=== PATIENT | male | born 1940 | race Caucasian/White ===

== ENCOUNTER → 2017-02-08 | Outpatient (CLI) | payer MEDICARE ==
[~2017-02-08] MED LIST: ALLO300T2 PO; ALTA2.5C4 PO; CARD240C6 PO; CIPR500T2 PO; CORE25TA PO; DIGO0.25 PO; EPLE25TA PO; FURO1TAB61 PO; GLIP1TAB60 PO; HYDR-3516 PO; METF500T PO; WARF-20 PO
[2017-02-08 11:21] LABS: AUTOMATED NEUTROPHIL # 6.6 TH/MM3 (1.8-7.7); BASOPHIL # 0.2 TH/MM3 (0-0.2); BASOPHIL % 2.3 % (0.0-2.0); EOSINOPHIL # 0.4 TH/MM3 (0-0.4); EOSINOPHIL % 4.4 % (0.0-4.0); HEMO FLAGS DIFF FINAL; LYMPHOCYTE # 1.9 TH/MM3 (1.0-4.8); MEAN CELL VOLUME 88.5 FL (80.0-100.0); MEAN CORPUSCULAR HEMOGLOBIN 29.1 PG (27.0-34.0); MEAN CORPUSCULAR HGB CONC 32.9 % (32.0-36.0); MONO % 6.8 % (0.0-8.0); NEUT % 67.5 % (16.0-70.0); PLATELET COUNT 202 TH/MM3 (150-450); RED BLOOD COUNT 4.29 MIL/MM3 (4.50-5.90); RED CELL DISTRIBUTION WIDTH 15.1 % (11.6-17.2); WHITE BLOOD COUNT 9.8 TH/MM3 (4.0-11.0)
[2017-02-08 11:26] LABS: BACTERIA, URINE RARE /hpf; BLOOD, URINE NEG (NEG); COMMENT (UR) CULTURE INDICATED; CULTURE IF INDICATED CULTURE INDICATED; GLUCOSE,URINE NEG (NEG); KETONE, URINE NEG (NEG); NITRITE,URINE NEG (NEG); SQUAMOUS EPITHELIAL CELL URINE <1 /hpf (0-5); URINE COLOR YELLOW (YELLW/STRAW)
[2017-02-08 11:33] LABS: URIC ACID 8.4 MG/DL (2.6-7.2)
[2017-02-08 11:33] LABS: INTERNATIONAL NORMALIZED RATIO 1.4 RATIO; PROTHROMBIN TIME - PATIENT 15.3 SEC (9.8-11.6)
[2017-02-08 11:34] LABS: ALT (GPT) 15 U/L (12-78); ANION GAP 8 MEQ/L (5-15); AST (GOT) 9 U/L (15-37); BICARBONATE 29.3 MEQ/L (21.0-32.0); BLOOD UREA NITROGEN 23 MG/DL (7-18); CHLORIDE 100 MEQ/L (98-107); GLOMERULAR FILTRATION RATE 57 ML/MIN (>89); GLUCOSE,FASTING 197 MG/DL (74-99); POTASSIUM 4.3 MEQ/L (3.5-5.1); SODIUM (NA) 137 MEQ/L (136-145)
[2017-02-08 11:36] LABS: ALKALINE PHOSPHATASE 42 U/L (45-117); TOTAL BILIRUBIN ADULT 1.2 MG/DL (0.2-1.0)
[2017-02-08 11:42] LABS: MICRO ALBUMIN RANDOM URINE RAW 10.4 MG/L (0.0-30.0)
[2017-02-08 11:47] LABS: DIGOXIN 1.6 NG/ML (0.8-2.0); LDL CHOLESTEROL 129 MG/DL (0-99)
[2017-02-08 18:15] LABS: HEMOGLOBIN A1b 2.7 %; HEMOGLOBIN Ao 79.4 %; HEMOGLOBIN LA1C 2.7 %
== END ==
LOC: ELAB 10:06
PROVIDERS: ATTEND Internal Medicine
DX: M10.9 Gout, unspecified (principal); E11.65 Type 2 diabetes mellitus with hyperglycemia; I10 Essential (primary) hypertension; I25.9 Chronic ischemic heart disease, unspecified; Z79.899 Other long term (current) drug therapy; Z79.01 Long term (current) use of anticoagulants; Z95.810 Presence of automatic (implantable) cardiac defibrillator; Z12.5 Encounter for screening for malignant neoplasm of prostate
CPT/HCPCS: 36415; 80053; 80061; 80162; 81001; 82043; 83036; 84153; 84443; 84550; 85025; 85610; 87086

== ENCOUNTER 2017-02-10 06:27 | Day surgery (SDC) | payer MEDICARE ==
[~2017-02-10] VITALS: Ht 182.9 cm; Wt 131.2 kg
[2017-02-10] MEDS ORDERED: SODIUM CHLOR 0.9% 1000 ML INJ 1,000 ML IV SCH (06:46)
[2017-02-10 07:00] VITALS: BP 124/71; PULSE 70; RESP 18; TEMP 98.5; O2SAT 95
[2017-02-10] MEDS ORDERED: POVIDONE IODINE 5% (ANTISEPSIS KIT) 4 APPLICATIONS EACH NARE SCH (07:00)
[2017-02-10] MEDS ORDERED: MUPIROCIN 2% OINT 1 APPLIC/GM SYR NASAL SCH (07:00)
[2017-02-10] MEDS ORDERED: CHLORHEXIDINE GLUCONATE 2 % 1 PACK (2 CLOTHS) TOP SCH (07:00)
[2017-02-10] MEDS ORDERED: VANCOMYCIN INJ 1,000 MG in SODIUM CHLOR 0.9% 250 ML INJ 250 ML IV SCH (07:00)
[2017-02-10] MEDS ORDERED: ceFAZolin 2 GM PREMIX 50 ML IV SCH ×2 (07:00→17:00)
[2017-02-10] MEDS ORDERED: POVIDONE IODINE 5% (ANTISEPSIS KIT) 4 APPLICATIONS EACH NARE PRN (07:15)
[2017-02-10] MEDS ORDERED: INSULIN HUMAN REGULAR 1,000 UNITS/10 ML VIAL SQ PRN (07:15)
[2017-02-10] MEDS ORDERED: SODIUM CHLORID 0.9% 500 ML IV PRN (07:15)
[2017-02-10] MEDS ORDERED: METOPROLOL TARTRATE 25 MG TAB PO PRN (07:15)
[2017-02-10] MEDS ORDERED: LACTATED RINGER'S 1000 ML IV PRN (07:15)
[2017-02-10] MEDS ORDERED: CHLORHEXIDINE GLUCONATE 2 % 1 PACK (2 CLOTHS) TOPICAL PRN (07:15)
[2017-02-10] MEDS ORDERED: ALTA2.5C4 PO (08:12)
[2017-02-10] MEDS ORDERED: HYDR-3516 PO (08:12)
[2017-02-10] MEDS ORDERED: GLIP1TAB60 PO (08:12)
[2017-02-10] MEDS ORDERED: ALLO300T2 PO (08:12)
[2017-02-10] MEDS ORDERED: DIGO0.25 PO (08:12)
[2017-02-10] MEDS ORDERED: EPLE25TA PO (08:12)
[2017-02-10] MEDS ORDERED: FURO1TAB61 PO (08:12)
[2017-02-10] MEDS ORDERED: CORE25TA PO (08:12)
[2017-02-10] MEDS ORDERED: METF500T PO (08:12)
[2017-02-10] MEDS ORDERED: WARF-20 PO (08:12)
[2017-02-10] MEDS ORDERED: CARD240C6 PO (08:12)
[2017-02-10] MEDS ORDERED: LIDOCAINE HCL 1% PF 30 ML VIAL ONE (08:27)
[2017-02-10] MEDS ORDERED: VANCOMYCIN HCL 1000 MG VIAL ONE (08:49)
[2017-02-10] MEDS ORDERED: MIDAZOLAM HCL 5 MG/5 ML VIAL ONE (08:49)
--- NOTE | 2017-02-10 09:39 | CATHPROC ---
[email or web address] HIS Report Study Information Study Number Admission Scheduled Start Study Start [id number] Feb 10 2017 6:27AM 02/10/2017 Feb 10 2017 8:26AM Agenda Service Cardiac Pacer/ICD Admit Source Facility Department Other [facility] - [facility] Operator Physician and Clinical Staff Initial MD Oliver, Carlitos Chief Power Dispatcher Erick Ennis,ANNA Recorder Shoshana Ivory RT(R) (BS) Scrub Frandy Jaimes RCIS(BS) Equipment Time Radiology Assistant Description Size Mfg Part Number Used/Scraped [employer]/ EP 09:16 DEFIBRILLATOR, ENERGEN INFORMATION SECURITY SPECIALIST-D N141 Used PACER TP-1103 08:28 [employer] SUTURE, STRIP PLUS 1/2" * Used *[id number] TP-1103 08:28 [employer] SUTURE, STRIP PLUS 1/2" * Used *[id number] 08:28 MEDLINE PACER ADHESIVE, MASTISOL 2/3CC 2/3CC 0523-48 Used 08:28 MEDLINE PACER LOMELI, LIMB * 2530 *[id number] Used [id number] 08:28 MEDLINE PACER PACK, PACER CUSTOM * Used *[id number] 08:28 MEDLINE PACER PEN, SKIN DUAL W/ RULER * Used *[id number] 09:23 Needle Sponge Count 1 111 Used 09:23 Needle Sponge Count 2 2 Used 09:23 Needle Sponge Count 25 1 Used [id number] SUTURE, 2-0 SILK Strands (A185H) SUTURE, 3-0 VICRYL [SH] ([id number]) SUTURE, 4-0 MONOCRYL [PS2] (Y496G) SUTURE, 4-0 VICRYL [PS2] ([id number]) [id number] 08:28 [facility] BLANKET,WARM AIR CCL * Used *[id number] [facility] PAD, ELECTROSURGICAL 08:28 * [id number] *[id number] Used SURGICAL GROUNDING ORANGE [id number] 08:28 [employer] [facility] [facility]. ELECTRODE, PRO-PADZ BIPHASIC * Used *[id number] Equipment Model, Serial, Lot Number and Expiration Data Description Model Number Serial Number Lot Number Expiration Date DEFIBRILLATOR, ENERGEN INFORMATION SECURITY SPECIALIST-D G141 [id number] 04-06-2017 History: Current Medications Medication Dosage/Unit Route Frequency Last Date/Time Taken Beta Earl Coumadin History: Allergies Allergy Reaction No Known Allergies History: Risk Factors Previous Heart Failure Yes History: Stress Tests Stress or Imaging Studies Performed No Labs Hgb (g/dl) Hct (%) WBC (l/cumm) Platelets (thousands) 11.60-17.00 35.00-51.00 4.00-11.00 150.00-450.00 12.5 38 9.8 202 Glucose (mg/dl) BUN (mg/dl) Creatinine (mg/dl) BUN:Creatinine (1:x) 74.00-106.00 7.00-18.00 0.50-1.30 10.00-20.00 197 23 1.2 19.2 Na (meq/l) K (meq/l) 136.00-145.00 3.50-5.10 137 4.3 INR (PTT:PT) 0.90-1.10 1.4 CPK-MB (ng/ML) 0.50-3.60 Not Drawn Medication Medication Total Dose (Bolus/Oral) Medication Total Dosage/Unit 2% XYLOCAINE 20 mL FENTANYL 50 mcg VERSED 2 mg Medications (Bolus/Oral) Medication Time Given Dosage/Unit Administered By Reason VERSED 02/10/2017 9:03:25 AM 2 mg Erick Ennis 2 mg VERSED given in lab by Erick Ennis RN in Right Antecubital via Peripheral IV. FENTANYL 02/10/2017 9:04:02 AM 50 mcg Carlitos Oliver 50 mcg FENTANYL given in lab by Carlitos Oliver via Peripheral IV. 2% XYLOCAINE 02/10/2017 9:04:04 AM 20 mL Carlitos Oliver 20 mL 2% XYLOCAINE given in lab by Carlitos Oliver via left upper chest Subcutaneous. Medication (Drip) Medication Time Given Dosage/Unit Concentration/Unit Diluent (ml) Solutio n ANCEF 02/10/2017 8:49:59 AM 2 g 2 g ANCEF given in lab by Erick Ennis RN in Right Antecubital via Peripheral IV. IV Solutions 02/10/2017 8:35:14 AM 0 mL (IV) 500 NaCl .9 IV Solutions given in lab by Erick Ennis, ANNA in Right Antecubital via Peripheral IV. Pump/Drip Constantine w = 20 ml/hr using NaCl .9. VANCOMYCIN DRIP 02/10/2017 8:50:21 AM 1 g 1 g VANCOMYCIN DRIP given in lab by Erick Ennis, RN in Right Antecubital via Peripheral IV. Initial Case Assessment Cardiovascular HR Rhythm NIBP Chest Pain 51 paced 124/81 0 Edema Present Skin color Skin None Normal Warm Dry Circulatory - Lower Extremities Color Lower Right Color Lower Left Normal Normal Neurological State Oriented to time-place- Alert Moves all extremities person Respiration - General Respiration Rate SpO2 (%) (B/min) 14 96 Final Case Assessment Cardiovascular HR Rhythm NIBP Chest Pain 59 PACED 109/68 0 Edema Present Skin color Skin None Normal Warm Dry Circulatory - Right Pulses Dorsalis Pedis 1 Scale (0,1,2,3,4,d) Circulatory - Left Pulses Dorsalis Pedis 1 Scale (0,1,2,3,4,d) Neurological State Oriented to time-place- Alert Moves all extremities person Respiration - General Respiration Rate SpO2 (%) O2 (lpm) (B/min) 18 97 2 Chronological Log Time Study Chronological Log 8:34:52 Patient arrived via Bed. 8:34:53 Patient Name, D.O.B, / Armband Verified By R.N. 8:34:53 Consent signed by the physician and the patient and verified by the [facility] Operator staff. 8:34:54 Pre-op and post- op instructions given; patient acknowledges understanding of instructions. 8:34:55 Verbal Stimulation=2 Physical Stimulation=2 Airway=2 Respiration=2 TOTAL=8. (0=absent, 1=gr ited, 2=present) 8:35:00 Presedation assessment performed by [facility] Operator RN. 8:35:01 Patient has been NPO for More than 6Hrs. 8:35:03 Skin Breakdown none per pt 8:35:05 Patient Warmer Placed on the Table. 8:35:07 Disposable Defibrillator Pads Placed On Patient. 8:35:08 Myah Prominences Protected 8:35:09 A # 20 IV was noted in the Antecubital (right). Grade = 0 IV Solutions given in lab by Erick Ennis, RN in Right Antecubital via Peripheral IV. Pump/Dri p Flow = 20 ml/hr using 8:35:14 NaCl .9. 8:35:14 History and physical on the chart or being dictated. Assessment: Initial Case, HR=51 BPM, Rhythm=paced, DTVX=040/81 mmhg, Chest Pain=0, Edema=None, Color=Normal, Skin = Warm, Dry Lower Right Extremities: Color=Normal 8:35:15 Lower Left Extremities: Color=Normal Neurological: State=Alert, Ox3, CONKLIN Respiration: Resp=14 B/min, SpO2=96 % 8:40:47 A # 20 IV was noted in the Wrist (left). Grade = 0 Vitals capture started with the following parameters, Patient=Adult, Interval=3 min, Initial Pre ywohs=920 mmHg, 8:41:57 Deflation Rate=5 mmHg, Cuff placed on Right Arm 8:42:38 HR=60 bpm, YMFZ=417/81 mmhg, SpO2=93.0 %, Resp=13 B/min, Pain=0, Lizzie=10, Brantley=2 8:45:32 HR=65 bpm, PYWO=955/62 mmhg, SpO2=96.0 %, Resp=13 B/min, Pain=0, Lizzie=10, Brantley=2 8:47:48 Reference ECG taken 8:48:30 HR=58 bpm, JOKW=309/63 mmhg, SpO2=97.0 %, Resp=15 B/min, Pain=0, Lizzie=10, Brantley=2 8:49:59 2 g ANCEF given in lab by Erick Ennis, RN in Right Antecubital via Peripheral IV. 8:50:21 1 g VANCOMYCIN DRIP given in lab by Erick Ennis, RN in Right Antecubital via Peripheral I V. 8:50:46 2% CHLORHEXIDINE GLUCONATE WASH AND NASAL SWIPE DONE PRIOR TO PROCEDURE. 8:50:53 Bovie ground pad applied to: right thigh 8:51:14 Left Upper Chest Prepped Times Two. 8:51:30 HR=63 bpm, LBZY=639/59 mmhg, SpO2=98.0 %, Resp=13 B/min, Pain=0, Lizzie=10, Brantley=2 First Sponge And Instrument Count Done by Frandy Jaimes RCIS(BS). 8:52:10 Hypo's: 2, Sponges: 25, Bovie/scratch: 1 verified by erick Sutures: 4, Blades: 3, Instruments: 26, Syveck Patches: 0 8:54:31 HR=56 bpm, QPWV=595/65 mmhg, SpO2=97.0 %, Resp=19 B/min, Pain=0, Lizzie=10, Brantley=2 8:57:33 HR=39 bpm, VTFT=749/63 mmhg, SpO2=97.0 %, Resp=17 B/min, Pain=0, Lizzie=10, Brantley=2 9:00:29 HR=61 bpm, NTXH=779/63 mmhg, SpO2=98.0 %, Resp=23 B/min, Pain=0, Lizzie=10, Brantley=2 Time Out. Correct patient, procedure, procedure equipment, site and side verified with physician present. Time 9:02:28 concurred by MD, individual staff and DESIGN AND SALES CONSULTANT. Time Out #2 - Consents verified, patient in correct position, all results are labled and display ed, safety precautions 9:02:35 taken, antibiotics administered. Time out concurred by MD, individual staff and DESIGN AND SALES CONSULTANT in procedur e 9:02:56 Case Start 9:03:25 2 mg VERSED given in lab by Erick Ennis, ANNA in Right Antecubital via Peripheral IV. 9:03:29 HR=63 bpm, FKSU=154/65 mmhg, SpO2=98.0 %, Resp=10 B/min, Pain=0, Lizzie=10, Brantley=2 9:04:02 50 mcg FENTANYL given in lab by Carlitos Oliver via Peripheral IV. 9:04:04 20 mL 2% XYLOCAINE given in lab by Carlitos Oliver via left upper chest Subcutaneous. 9:05:23 Surgical Incision Made. 9:06:34 HR=59 bpm, XPJJ=852/58 mmhg, SpO2=96.0 %, Resp=13 B/min, Pain=0, Lizzie=10, Brantley=2 9:09:34 HR=58 bpm, YKXQ=219/63 mmhg, SpO2=95.0 %, Resp=16 B/min, Pain=0, Lizzie=10, Brantley=2 9:10:15 A device was explanted. 9:12:30 HR=58 bpm, QOLU=384/62 mmhg, SpO2=95.0 %, Resp=12 B/min, Pain=0, Lizzie=10, Brantley=2 9:14:17 A DEFIBRILLATOR, ENERGEN INFORMATION SECURITY SPECIALIST-D was connected and placed in the pocket. 9:15:30 HR=80 bpm, KLDA=319/68 mmhg, SpO2=95.0 %, Resp=12 B/min, Pain=0, Lizzie=10, Brantley=2 9:17:40 Pocket flushed with antibiotic solution 9:18:30 HR=69 bpm, NYTV=669/65 mmhg, SpO2=95.0 %, Resp=20 B/min, Pain=0, Lizzie=10, Brantley=2 9:21:33 HR=69 bpm, MBZW=743/65 mmhg, SpO2=95.0 %, Resp=12 B/min, Pain=0, Lizzie=10, Brantley=2 Second Sponge And Instrument Count Done by Frandy Jaimes RCIS(BS). 9:23:18 Hypo's: 2, Sponges: 25, Bovie/scratch: 1 Sutures: 4, Blades: 3, Instruments: 26, Syveck Patches: 0 9:24:31 HR=70 bpm, XXEL=054/62 mmhg, SpO2=96.0 %, Resp=12 B/min, Pain=0, Lizzie=10, Brantley=2 9:26:47 The pocket was closed. 9:27:31 HR=68 bpm, SIPZ=139/69 mmhg, SpO2=96.0 %, Resp=13 B/min, Pain=0, Lizzie=10, Brantley=2 9:30:29 HR=64 bpm, ZNBP=284/68 mmhg, SpO2=96.0 %, Resp=12 B/min, Pain=0, Lizzie=10, Brantley=2 FINAL Sponge And Instrument Count Done by Frandy Jaimes RCIS(BS). 9:31:14 Hypo's: 2, Sponges: 25, Bovie/scratch: 1 Sutures: 4, Blades: 3, Instruments: 26, Syveck Patches: 0 9:31:21 Implant Procedure was performed. 9:31:55 A Bivent ICD Implant . (Dual) GEN CHANGE Assessment: Final Case, HR=59 BPM, Rhythm=PACED, MSAW=986/68 mmhg, Chest Pain=0, Edema=None, Color=Normal, Skin = Warm, Dry Right Pulses: Kelechi Ped=1 9:32:07 Left Pulses: Kelechi Ped=1 Neurological: State=Alert, Ox3, CONKLIN Respiration: Resp=18 B/min, SpO2=97 %, O2=2 lpm 9:32:47 Case End 9:32:48 Sterile dressing applied to site 9:32:49 No case complications noted. 9:32:50 Cine recording checked. 9:32:53 Bedside Report will be given. 9:32:54 Implantable Device card placed in patient's chart. 9:32:55 DOCU called. Spoke to KAPIL 9:33:24 Defibrillator and ground pads removed. Skin intact. 9:33:30 HR=71 bpm, KROO=363/67 mmhg, SpO2=97.0 %, Resp=12 B/min, Pain=0, Lizzie=10, Brantley=2 9:36:32 HR=64 bpm, UUQR=446/67 mmhg, SpO2=97.0 %, Resp=13 B/min, Pain=0, Lizzie=10, Brantley=2 9:43:50 [facility] - Contrast Media Used In Study Contrast Total Opened (mL) Total Used (mL) Total Wasted (mL) Unspecified 0 0 0 End Study - Maximum Contrast Load Max Contrast Load (mL) 546.6 End Study - Radiation Exposure Fluoro Time (minutes) 0.0 End Study - Patient Disposition Complications Transferred To Interventional Outcome No Telemetry Bed successful
[2017-02-10] MEDS ORDERED: ACETAMINOPHEN 325 MG TAB PO PRN (10:00)
[2017-02-10] MEDS ORDERED: SODIUM CHLORIDE 0.9% FLUSH 10 ML FLUSH IV FLUSH PRN (10:00)
[2017-02-10] MEDS ORDERED: BACITRACIN OINT 0.9 GM PKT TOP PRN (10:00)
[2017-02-10] MEDS ORDERED: CIPR500T2 PO (10:26)
[2017-02-10] MEDS ORDERED: ALLOPURINOL 300 MG TAB PO SCH (17:00)
[2017-02-10] MEDS ORDERED: EPLERENONE 25 MG TAB PO SCH (17:00)
[2017-02-10] MEDS ORDERED: DIGOXIN 0.25 MG TAB PO SCH (17:00)
[2017-02-10] MEDS ORDERED: glipiZIDE 5 MG TAB PO SCH (17:00)
[2017-02-10] MEDS ORDERED: FUROSEMIDE 80 MG TAB PO SCH (17:00)
[2017-02-10] MEDS ORDERED: DILTIAZEM-CD 240 MG CAP ER PO SCH (17:00)
[2017-02-10] MEDS ORDERED: PILL SPLITTER OTHER PRN (17:00)
[2017-02-10] MEDS ORDERED: metFORMIN HCL 500 MG TAB PO SCH (18:00)
[2017-02-10] MEDS ORDERED: RAMIPRIL 2.5 MG CAP PO SCH (21:00)
[2017-02-10] MEDS ORDERED: SODIUM CHLORIDE 0.9% FLUSH 10 ML FLUSH IV FLUSH SCH (21:00)
[2017-02-10] MEDS ORDERED: CARVEDILOL 12.5 MG TAB PO SCH (21:00)
--- NOTE | 2017-02-10 21:55 | MP ---
cc: GUNNER HARRIS M.D. DATE OF SURGERY 02/10/17 PROCEDURE PERFORMED Explantation of a cardiac resynchronization device with replacement. PREOPERATIVE DIAGNOSIS Nonischemic cardiomyopathy, severe left ventricular dysfunction, ejection fraction 20%, chronic systolic congestive heart failure, ventricular arrhythmias, AV SPECIALIST-D KRISSY malfunction POSTOPERATIVE DIAGNOSIS Nonischemic cardiomyopathy, severe left ventricular dysfunction, ejection fraction 20%, chronic systolic congestive heart failure, ventricular arrhythmias, AV SPECIALIST-D KRISSY malfunction ANESTHESIA 1% Xylocaine local with awake sedation in the form of intravenous Versed and fentanyl. COMPLICATIONS None ESTIMATED BLOOD LOSS 10 mL PROCEDURE TECHNIQUE The patient was brought to the cardiac catheterization laboratory and the area of the existing defibrillator implant in the left upper chest was prepped and draped in usual sterile manner. Following informed consent, he was given some intravenous sedation and 1% Xylocaine for local anesthesia. An incision was made with the use of a plasma Bovie, blunt dissection. The existing device located and explanted from the pocket without difficulty. The device leads were removed and checked for function and the device was exchanged for a new device. The leads were double checked for secure fastening and proper positioning. The pocket was copiously irrigated with vancomycin irrigation solution. The device and leads were placed in the pocket and the device was sutured to the pectoralis fascia with 2-0 silk. The pocket was then closed with 3-0 Vicryl for deep closure and 4-0 Vicryl for subcuticular closure in a running fashion. Steri-Strips and sterile pressure dressing was placed. The patient tolerated procedure well. There were no immediate complications. DEVICE INFORMATION Explanted device is a [employer] biventricular device. The small implanted device is a [employer] AV SPECIALIST-D model number G141, serial number [id number]. The existing chronic lead information is as follows: atrial lead number 4470, serial number [id number], implanted April 2004, showed a P-wave sensing amplitude of 1.8 mV, impedance of 379 ohms. No pacing threshold due to underlying atrial fibrillation. Right ventricular lead model 0148, serial number [id number], implant date October 2003. R-wave amplitude 8.2 mV, impedance 560 ohms, threshold 1.1 volts at 0.5 milliseconds. The LV lead model number 4543, serial number [id number]. Implant date April 2009. R-wave amplitude 7.9 mV, impedance 485 ohms, pacing threshold 1.9 volts at 0.5 milliseconds. The device is set at DDDR mode 60-120. MD JUNIOR Yousif/ /9:41 AM /9:45 PM
== END 2017-02-10 14:49 | disposition home or self-care (01) ==
LOC: HDOC 06:27 → HDIC 06:28 → HDOC 14:49
PROVIDERS: ATTEND Internal Medicine Interventional Cardiology
DX: Z45.02 Encounter for adjustment and management of automatic implantable cardiac defibrillator (principal); I11.0 Hypertensive heart disease with heart failure; I50.22 Chronic systolic (congestive) heart failure; I48.2 Chronic atrial fibrillation; I47.0 Re-entry ventricular arrhythmia; I42.0 Dilated cardiomyopathy; E11.9 Type 2 diabetes mellitus without complications; E66.09 Other obesity due to excess calories; Z68.39 Body mass index [BMI] 39.0-39.9, adult; Z79.01 Long term (current) use of anticoagulants
CPT/HCPCS: 00530; 33264; C1882; J0690; J2250; J3010; J3370; J7050; 33229